=== PATIENT | female | born 1995 | race Caucasian/White ===

== ENCOUNTER 2018-01-24 10:43 | Emergency (ER) | payer OTHER ==
[~2018-01-24] VITALS: Ht 160 cm; Wt 98.7 kg
[2018-01-24 10:44] VITALS: BP 123/83
[2018-01-24] MEDS ORDERED: LIDOCAINE-MPF 1%, 2ML ONE (11:30)
[2018-01-24] MEDS ORDERED: DIPH,PERTUSS(ACELL),TET VAC/PF 0.5 ML IM-VACC ONE ×2 (11:30)
[2018-01-24] MEDS ORDERED: LIDOCAINE-MPF 1%, 5ML INFIL ONE (11:30)
[2018-01-24] MEDS ORDERED: BUPIVACAINE 0.25% ONE (12:06)
[2018-01-24] MEDS ORDERED: BUPIVACAINE/PF 0.25% INFIL ONE (12:30)
== END 2018-01-24 14:00 | disposition home or self-care (01) ==
LOC: ED 13:53
DX: S01.21XA Laceration without foreign body of nose, initial encounter (principal); S60.511A Abrasion of right hand, initial encounter; W22.8XXA Striking against or struck by other objects, initial encounter; Y93.89 Activity, other specified; Y92.009 Unspecified place in unspecified non-institutional (private) residence as the place of occurrence of the external cause; Y99.8 Other external cause status
CPT/HCPCS: 13152; 70486; 73130; 90471; 90715; 99285; J3490